=== PATIENT | male | born 1975 ===

== ENCOUNTER 2016-12-04 10:14 | Emergency (ER) | payer SELFPAY ==
--- NOTE | 2016-12-04 15:01 | Emergency Department Report ---
HPI - HPI HPI: Patient is a 41-year-old male who presents to ED complaining of vomiting 2 episodes today. Patient states last night he drank a muscle milk milk and woke up this morning with mild nausea and 2 episodes of vomiting. Patient reports mild nausea as of now but no vomiting. he states he does not recall if the milk was . Patient denies fevers/chills/abdominal pain/diarrhea/chest pain, shortness of breath, itching, chest tightness, difficulty breathing <RICHARD WU - Last Filed: 12/04/16 17:56> <THERESE PINTO - Last Filed: 12/05/16 15:38> - General Chief Complaint: Nausea/Vomiting/Diarrhea Time Seen by Provider: 12/04/16 14:59 ED Past Medical Hx - Past Medical History Previous Medical History?: No - Surgical History Past Surgical History?: No - Social History Smoking Status: Never Smoker Substance Use Type: Alcohol <RICHARD WU - Last Filed: 12/04/16 17:56> <THERESE PINTO - Last Filed: 12/05/16 15:38> - Medications Home Medications: Home Medications Medication Instructions Recorded Confirmed Last Taken Type Ondansetron [Zofran ODT TAB] 8 mg PO Q8HR #30 tab.rapdis 12/04/16 Unknown Rx ED Review of Systems ROS: Stated complaint: VOMITTING Other details as noted in HPI Constitutional: denies: chills, fever Eyes: denies: eye pain, eye discharge, vision change ENT: denies: ear pain, throat pain, dental pain, hearing loss, epistaxis Respiratory: denies: cough, shortness of breath, wheezing Cardiovascular: denies: chest pain, palpitations, orthopnea Endocrine: no symptoms reported Gastrointestinal: nausea, vomiting. denies: abdominal pain, diarrhea, constipation, hematemesis, melena, hematochezia Genitourinary: denies: urgency, dysuria Musculoskeletal: denies: back pain, joint swelling, arthralgia Skin: denies: rash, lesions Neurological: denies: headache, weakness, paresthesias Psychiatric: denies: anxiety, depression Hematological/Lymphatic: denies: easy bleeding, easy bruising <RICHARD WU - Last Filed: 12/04/16 17:56> ROS: Stated complaint: VOMITTING Other details as noted in HPI <THERESE PINTO M - Last Filed: 12/05/16 15:38> Physical Exam - Physical Exam Vital Signs: Vital Signs 12/04/16 10:55 Temperature 97 F L Pulse Rate 104 H Respiratory 20 Rate Blood Pressure 121/83 O2 Sat by Pulse 100 Oximetry Physical Exam: GENERAL: Alert and oriented x3, no apparent distress, Normal Gait, atraumatic. HEAD: Head is normocephalic and a-traumatic. EYES: Extra ocular muscles are intact. Pupils are equal, round, and reactive to light and accommodation. EARS: symetrical, atraumatic, non tender, ear canal clear and moderate cerumen, tympanic membrance non inflamed. gross auditory nml bilaterally. NOSE: Nose symetrical, Nontender,Nares appeared normal. MOUTH:Mouth is well hydrated and without lesions. Tonsils nonerythematous or swollen, Uvula midline, Tongue not elevated. Mucous membranes are moist. Posterior pharynx clear, no exudate or lesions. Patent airways. NECK: Supple. Non edematous, No carotid bruits. No lymphadenopathy or thyromegaly. LUNGS: Symetrical with respiration, No wheezing, no rales or crackles, CTAB. HEART: S1, S2 present, regular rate and rhythm without murmur, no rubs, no gallops. ABDOMEN: No organomegaly was noted,Positive bowel sounds, soft, and non- distended. . Nontender to palpation on all Quadrants, NO CVA tenderness. EXTREMITIES/MUSCULOSKELETAL: No cyanosis, clubbing, rash, lesions or edema. Full ROM bilaterally. UE/LE Pulses 2+ bilaterally. LE and UE 5+ strength bilaterally NEUROLOGIC: No focal Deficit, Cranial nerves II through XII are grossly intact. No loss of sensation, No facial droop, Negative rhomberg. PSYCHIATRIC: Mood is congruent with affect, denies suicidal or homicidal ideations. SKIN: Warm and dry, No lesions, No ulceration or induration present. <RICHARD WU - Last Filed: 12/04/16 17:56> - Physical Exam Vital Signs: Vital Signs 12/04/16 12/04/16 10:55 15:00 Temperature 97 F L Pulse Rate 104 H 51 L Respiratory 20 16 Rate Blood Pressure 121/83 Blood Pressure 113/76 [Left] O2 Sat by Pulse 100 100 Oximetry <THERESE PINTO M - Last Filed: 12/05/16 15:38> ED Course Vital Signs 12/04/16 10:55 Temperature 97 F L Pulse Rate 104 H Respiratory 20 Rate Blood Pressure 121/83 O2 Sat by Pulse 100 Oximetry <RICHARD WU A - Last Filed: 12/04/16 17:56> Vital Signs 12/04/16 12/04/16 10:55 15:00 Temperature 97 F L Pulse Rate 104 H 51 L Respiratory 20 16 Rate Blood Pressure 121/83 Blood Pressure 113/76 [Left] O2 Sat by Pulse 100 100 Oximetry - Reevaluation(s) Reevaluation #1: Patient to be called back for further evaluation today unless he is asymptomatic. 12/05/16 15:38 <THERESE PINTO - Last Filed: 12/05/16 15:38> ED Medical Decision Making - Lab Data Temp Pulse Resp BP Pulse Ox 97 F L 51 L 16 113/76 100 12/04/16 10:55 12/04/16 15:00 12/04/16 15:00 12/04/16 15:00 12/04/16 15:00 - Medical Decision Making 41-year-old male presents with nausea and vomiting secondary to bad food ingestion. Alert and oriented 3. In no respiratory or acute distress. Vital signs stable. Discussed with patient to always check expiration date on food prior to eating. Patient received 16 mg of Zofran and ED Discussed home therapy with Zofran ODT. Discussed increase hydration 8-10 glasses of water per day. Discussed to follow up with primary care physician as referred. Discussed if worsening symptoms to return to ED. Otherwise follow-up with primary care physician. Patient states he understands and will comply to follow-up. <RICHARD WU A - Last Filed: 12/04/16 17:56> Critical care attestation.: If time is entered above; I have spent that time in minutes in the direct care of this critically ill patient, excluding procedure time. <RICHARD WU A - Last Filed: 12/04/16 17:56> Critical care attestation.: If time is entered above; I have spent that time in minutes in the direct care of this critically ill patient, excluding procedure time. <MILLIETHERESE M - Last Filed: 12/05/16 15:38> ED Disposition Is pt being admited?: No Does the pt Need Aspirin: No Time of Disposition: 15:29 <RICHARD WU - Last Filed: 12/04/16 17:56> <MILLIETHERESE Mcginnis - Last Filed: 12/05/16 15:38> Disposition: DISCHARGED TO HOME OR SELFCARE Condition: Stable Instructions: Acute Nausea and Vomiting (ED), Soft Diet (ED), High Fiber Diet ( ED) Additional Instructions: Follow-up with primary care physician as referred. Increase hydration to 8-10 glasses of water per day Keep away from foods in fatty or cars. Stick to the brat diet for the next week Prescriptions: Ondansetron [Zofran ODT TAB] 8 mg PO Q8HR #30 tab.rapdis Referrals: PRIMARY CARE, [Primary Care Provider] - 3-5 Days [facility] [Outside] - 3-5 Days [facility] [Outside] - 3-5 Days [facility] [Outside] - 3-5 Days Forms: Accompanied Note, Work/School Release Form(ED)
[2016-12-04] MEDS ORDERED: ZOFRAN ODT PO ONE (15:21)
[2016-12-04 16:00] VITALS: BP 113/76
== END 2016-12-04 16:02 | disposition home or self-care (01) ==
LOC: ED 10:14
DX: R11.2 Nausea with vomiting, unspecified (principal)
CPT/HCPCS: 99282; Q0162